=== PATIENT | female | born 1935 | race Caucasian/White ===

== ENCOUNTER → 2020-11-02 | Outpatient (CLI) | payer MEDICARE, BC | END | disposition home or self-care (01) | LOC: LABWHC1 14:05 | PROVIDERS: ATTEND Family Medicine | DX: U07.1 COVID-19 (principal) | CPT/HCPCS: 87502; U0003; U0005 ==

== ENCOUNTER 2021-04-24 10:01 | Observation (INO) | payer MEDICARE, BC ==
[2021-04-24] MEDS ORDERED: SODIUM CHLORIDE 0.9% 500 ML 500 ML IV STA (10:07)
--- NOTE | 2021-04-24 10:14 | ED ---
General Adult HPI - General Stated complaint: possible stemi Source: patient, RN notes reviewed, old records reviewed - History of Present Illness Initial comments: 85-year-old female presenting with chief complaint of lower abdominal pain and diarrhea. Paramedics had been contacted and the patient did have a syncopal episode possibly up to 3 separate episodes where she momentarily loss consciousness. She was transported as a priority 1 with EKG changes. She was noted to have a left bundle branch block and is unable to state if she has a history of left bundle branch block. She has no previous known history of coronary artery disease, denies current chest pain. She has lower abdominal pain and his had multiple episodes of diarrhea over the past 24 hours. She's had nausea without vomiting. - Related Data Home Medications Medication Instructions Recorded Confirmed Furosemide [Lasix] 20 mg PO DAILY PRN 04/24/21 04/24/21 Levothyroxine Sodium [Synthroid] 75 mcg PO DAILY 04/24/21 04/24/21 Losartan Potassium 100 mg PO DAILY 04/24/21 04/24/21 Lutein 10 mg PO DAILY 04/24/21 04/24/21 Metoprolol Succinate [Toprol XL] 25 mg PO DAILY 04/24/21 04/24/21 Pantoprazole [Protonix] 40 mg PO DAILY 04/24/21 04/24/21 Propylene Glycol/Peg 400/Pf 1 drop BOTH EYES BID 04/24/21 04/24/21 [Systane 0.3-0.4% Eye Drop] metFORMIN HCL 500 mg PO BID 04/24/21 04/24/21 Allergies Allergy/AdvReac Type Severity Reaction Status Date / Time Sulfa (Sulfonamide Allergy Unknown Verified 04/24/21 13:30 Antibiotics) Review of Systems ROS Statement: Those systems with pertinent positive or pertinent negative responses have been documented in the HPI. ROS Other: All systems not noted in ROS Statement are negative. General Exam General appearance: alert, in no apparent distress Head exam: Present: atraumatic, normocephalic Eye exam: Present: normal appearance, PERRL ENT exam: Present: mucous membranes dry Neck exam: Present: normal inspection Respiratory exam: Present: normal lung sounds bilaterally. Absent: respiratory distress, wheezes Cardiovascular Exam: Present: regular rate, normal rhythm GI/Abdominal exam: Present: soft. Absent: distended, tenderness, guarding, rebound Extremities exam: Present: normal inspection, normal capillary refill Neurological exam: Present: alert, oriented X3, CN II-XII intact. Absent: motor sensory deficit Psychiatric exam: Present: normal affect, normal mood Skin exam: Present: warm, dry, intact. Absent: cyanosis, diaphoretic Course Vital Signs 04/24/21 04/24/21 04/24/21 10:03 11:15 12:30 Temperature 98.8 F 98.6 F Pulse Rate 78 68 70 Respiratory 18 16 22 Rate Blood Pressure 168/76 176/86 155/73 O2 Sat by Pulse 96 95 96 Oximetry 04/24/21 04/24/21 13:00 13:30 Temperature Pulse Rate 71 65 Respiratory 22 16 Rate Blood Pressure 155/72 157/65 O2 Sat by Pulse 97 96 Oximetry EKG Findings - EKG Comments: EKG Findings:: EKG: Sinus rhythm, left axis, left bundle branch block rate of 73, CA interval 200, QRS duration 145, QTC 438, does not meet Scarboza criteria Medical Decision Making - Medical Decision Making 85-year-old female presenting with abdominal pain, diarrhea, and multiple syncopal episodes. Upon arrival she is alert and oriented with stable vitals. She has sinus rhythm with left bundle branch block. No old for comparison. There is no active chest pain. She has been having diarrhea and lower abdominal pain for the past 24 hours. Workup is initiated. She has a normal CBC no leukocytosis, stable hemoglobin, all to the normal CMP. Urinalysis is pending. CT of the abdomen does show a uncomplicated diverticulitis. Chest x-ray is unremarkable. She will be admitted for IV hydration, IV antibiotics, and monitoring. I suspect his syncope was related to volume loss from diarrhea. Case discussed with Dr. Bhatt who will admit. - Lab Data Result diagrams: 04/24/21 10:03 04/24/21 10:03 Lab Results 04/24/21 04/24/21 04/24/21 Range/Units 10:03 10:03 10:03 WBC 5.6 (3.8-10.6) k/uL RBC 5.05 (3.80-5.40) m/uL Hgb 13.3 (11.4-16.0) gm/dL Hct 41.6 (34.0-46.0) % MCV 82.4 (80.0-100.0) fL MCH 26.4 (25.0-35.0) pg MCHC 32.0 (31.0-37.0) g/dL RDW 13.8 (11.5-15.5) % Plt Count 204 (150-450) k/uL MPV 8.5 Neutrophils % 60 % Lymphocytes % 24 % Monocytes % 9 % Eosinophils % 4 % Basophils % 1 % Neutrophils # 3.4 (1.3-7.7) k/uL Lymphocytes # 1.3 (1.0-4.8) k/uL Monocytes # 0.5 (0-1.0) k/uL Eosinophils # 0.2 (0-0.7) k/uL Basophils # 0.1 (0-0.2) k/uL PT 10.9 (9.0-12.0) sec INR 1.0 (<1.2) APTT 22.4 (22.0-30.0) sec Sodium 135 L (137-145) mmol/L Potassium 4.3 (3.5-5.1) mmol/L Chloride 107 (98-107) mmol/L Carbon Dioxide 19 L (22-30) mmol/L Anion Gap 9 mmol/L BUN 18 H (7-17) mg/dL Creatinine 1.03 (0.52-1.04) mg/dL Est GFR (CKD-EPI)AfAm 58 (>60 ml/min/1.73 sqM) Est GFR (CKD-EPI)NonAf 50 (>60 ml/min/1.73 sqM) Glucose 162 H (74-99) mg/dL Calcium 9.3 (8.4-10.2) mg/dL Magnesium 1.4 L (1.6-2.3) mg/dL Total Bilirubin 0.7 (0.2-1.3) mg/dL AST 28 (14-36) U/L ALT 18 (4-34) U/L Alkaline Phosphatase 54 (38-126) U/L Troponin I (0.000-0.034) ng/mL Total Protein 7.8 (6.3-8.2) g/dL Albumin 4.1 (3.5-5.0) g/dL 04/24/21 Range/Units 10:03 WBC (3.8-10.6) k/uL RBC (3.80-5.40) m/uL Hgb (11.4-16.0) gm/dL Hct (34.0-46.0) % MCV (80.0-100.0) fL MCH (25.0-35.0) pg MCHC (31.0-37.0) g/dL RDW (11.5-15.5) % Plt Count (150-450) k/uL MPV Neutrophils % % Lymphocytes % % Monocytes % % Eosinophils % % Basophils % % Neutrophils # (1.3-7.7) k/uL Lymphocytes # (1.0-4.8) k/uL Monocytes # (0-1.0) k/uL Eosinophils # (0-0.7) k/uL Basophils # (0-0.2) k/uL PT (9.0-12.0) sec INR (<1.2) APTT (22.0-30.0) sec Sodium (137-145) mmol/L Potassium (3.5-5.1) mmol/L Chloride (98-107) mmol/L Carbon Dioxide (22-30) mmol/L Anion Gap mmol/L BUN (7-17) mg/dL Creatinine (0.52-1.04) mg/dL Est GFR (CKD-EPI)AfAm (>60 ml/min/1.73 sqM) Est GFR (CKD-EPI)NonAf (>60 ml/min/1.73 sqM) Glucose (74-99) mg/dL Calcium (8.4-10.2) mg/dL Magnesium (1.6-2.3) mg/dL Total Bilirubin (0.2-1.3) mg/dL AST (14-36) U/L ALT (4-34) U/L Alkaline Phosphatase (38-126) U/L Troponin I <0.012 (0.000-0.034) ng/mL Total Protein (6.3-8.2) g/dL Albumin (3.5-5.0) g/dL Disposition Clinical Impression: Syncope, Diverticulitis, Dehydration Disposition: ADMITTED IP TO THIS [facility] Condition: Stable Is patient prescribed a controlled substance at d/c from ED?: No Referrals: Satinder Caraballo MD [Primary Care Provider] - 1-2 days Decision to Admit Reason: Admit from EC Decision Date: 04/24/21 Decision Time: 14:01
[2021-04-24 10:24] LABS: Basophils # (A) 0.1 k/uL (0-0.2); Basophils % (A) 1 %; Eosinophils # (A) 0.2 k/uL (0-0.7); Eosinophils % (A) 4 %; HCT 41.6 % (34.0-46.0); HGB 13.3 gm/dL (11.4-16.0); Lymphocytes # (A) 1.3 k/uL (1.0-4.8); Lymphocytes % (A) 24 %; MCH 26.4 pg (25.0-35.0); MCV 82.4 fL (80.0-100.0); Mean Platelet Volume 8.5; Monocytes # (A) 0.5 k/uL (0-1.0); Monocytes % (A) 9 %; Neutrophils # (A) 3.4 k/uL (1.3-7.7); Neutrophils % (A) 60 %; Platelet Count 204 k/uL (150-450); RBC 5.05 m/uL (3.80-5.40); RDW 13.8 % (11.5-15.5); WBC 5.6 k/uL (3.8-10.6)
[2021-04-24 10:37] LABS: Partial Thromboplastin Time 22.4 sec (22.0-30.0); Prothrombin Time 10.9 sec (9.0-12.0)
--- NOTE | 2021-04-24 10:39 | XR ---
EXAMINATION TYPE: XR chest 2V DATE OF EXAM: 04/24/2021 COMPARISON: NONE HISTORY: Syncope and diaphoresis. TECHNIQUE: Frontal and lateral views of the chest are obtained. FINDINGS: There is mild chronic parenchymal change without suspicious focal air space opacity, pleur al effusion, or pneumothorax seen. Cardiomegaly is seen. Retrocardiac opacity consistent with modera te to large size hiatal hernia is identified. The osseous structures are demineralized. IMPRESSION: Chronic changes and cardiomegaly without acute pulmonary process.
[2021-04-24 10:40] LABS: Albumin 4.1 g/dL (3.5-5.0); Calcium 9.3 mg/dL (8.4-10.2); Magnesium 1.4 mg/dL (1.6-2.3); Potassium 4.3 mmol/L (3.5-5.1); Total Bilirubin 0.7 mg/dL (0.2-1.3); Total Protein 7.8 g/dL (6.3-8.2)
[2021-04-24] MEDS ORDERED: MORPHINE SULFATE 4 MG/ML SYRINGE IVP STA (10:44)
[2021-04-24] MEDS ORDERED: MAGNESIUM SULFATE-D5W PMX 1 GM in DEXTROSE/WATER 1 100ML.BAG IVPB ONE (10:44)
--- NOTE | 2021-04-24 10:52 | XR ---
EXAMINATION TYPE: XR KUB DATE OF EXAM: 04/24/2021 10:41 AM CLINICAL HISTORY: Abdominal pain. TECHNIQUE: Two supine KUB images of the abdomen are obtained. COMPARISON: None. FINDINGS: Scattered gas is seen in non-distended small and large bowel loops. Cholecystectomy clips a re present. A large approximately 2.3 cm calcification right pelvis could reflect calcified fibroid o r intraluminal bladder calculus. Retrocardiac opacity consistent with hiatal hernia seen better on re cent chest x-ray. Moderate axial joint space loss both hips. IMPRESSION: Overall nonspecific strongly favor nonobstructive bowel gas pattern.
--- NOTE | 2021-04-24 12:07 | CT ---
EXAMINATION TYPE: CT abdomen pelvis w con DATE OF EXAM: 04/24/2021 HISTORY: Pelvic cramping CT DLP: 1065.4mGycm Automated Exposure Control for Dose Reduction was Utilized. CONTRAST: CT scan of the abdomen and pelvis is performed without oral but with IV Contrast, patient injected wi th 100 mL of Isovue 300. COMPARISON: Same day abdominal x-ray. FINDINGS: LUNG BASES: Dependent atelectasis left lung base. LIVER/GB: Cholecystectomy clips are redemonstrated. PANCREAS: No significant abnormality is seen. SPLEEN: No significant abnormality is seen. ADRENALS: No significant abnormality is seen. KIDNEYS: Symmetric cortical medullary uptake and excretion without hydronephrosis seen bilaterally. N o intraluminal calculus in the bladder. BOWEL: Suboptimal evaluation of bowel without enteric contrast. No suspicious small or large bowel di latation. There is large size hiatal hernia or intrathoracic stomach with twisting. No suspicious sma ll or large bowel dilatation. Diverticula throughout the colon greatest involving the sigmoid colon. Perhaps mild adjacent fat stranding in the pelvis. No well-formed fluid collection or abscess. No marisela e air. UTERUS/ADNEXA: Anteverted uterus projects just right of midline. Uterus small in size correlating wit h patient's postmenopausal age. Scattered adjacent calcified pelvic phleboliths including dominant 2 cm calcified phlebolith on the right side axial image 66 corresponds to x-ray abnormality. LYMPH NODES: No greater than 1cm abdominal or pelvic lymph nodes are appreciated. OSSEOUS STRUCTURES: Moderate to severe disc space narrowing with vacuum disc phenomenon at lumbosacra l junction. OTHER: No significant additional abnormality is seen. IMPRESSION: Prominent sigmoid colonic diverticulosis with suggestion of mild uncomplicated acute dive rticulitis at this level.
[2021-04-24] MEDS ORDERED: LEVOFLOXACIN 500MG-D5W PMX 500 MG in DEXTROSE/WATER 1 100ML.BAG IVPB STA (13:58)
[2021-04-24] MEDS ORDERED: MORPHINE SULFATE 4 MG/ML SYRINGE IV PRN (13:58)
[2021-04-24] MEDS ORDERED: metroNIDAZOLE-NS PMX 500 MG in SALINE 1 100ML.BAG IVPB STA (13:58)
[2021-04-24] MEDS ORDERED: NALOXONE 0.4 MG/ML 1 ML VIAL IV PRN (13:58)
[2021-04-24 16:00] LABS: Appearance,Urine Clear (Clear); Bilirubin,Urine Negative (Negative); Blood,Urine Negative (Negative); Color,Urine Light Yellow; Glucose,Urine (UA) Negative (Negative); Hyaline Casts,Urine 1 /lpf (0-2); Ketones,Urine Negative (Negative); Leukocyte Esterase,Urine Small (Negative); Mucus,Urine Rare /hpf; Nitrite,Urine Negative (Negative); Protein,Urine Negative (Negative); RBC,Urine <1 /hpf (0-5); Squamous Epithelial Cell,Urine 1 /hpf (0-4); Urobilinogen,Urine <2.0 mg/dL (<2.0); WBC,Urine 1 /hpf (0-5)
[2021-04-24] MEDS: SODIUM CHLORIDE 0.9% 1,000 ML IV SCH (18:52)
[2021-04-24] MEDS: HEPARIN SODIUM,PORCINE/PF 5,000 UNIT/0.5 ML SYRINGE SQ SCH ×2 (19:03→19:57)
[2021-04-24] MEDS: ARTIFICIAL TEARS-HYPROMELLOSE DROPS 15 ML BTL BOTH EYES SCH (19:56)
--- NOTE | 2021-04-24 23:11 | P.HPIM ---
History of Present Illness H&P Date: 04/24/21 Chief Complaint: Abdominal pain Patient is a 85-year-old female with a known history of hypertension, diabetes type 2 [id number], hypothyroidism and history of cholecystectomy presents to ER with complaints of abdominal pain and diarrhea. Patient states that she had about 5 episodes of diarrhea since morning and just came out of the bathroom and suddenly felt lower abdominal pain and leaning onto the couch. Patient states that she lost consciousness for about half a minute and was able to get up and call family and EMS was called and patient was brought to the hospital. Patient did have another syncopal episode and EMS put her on the stretcher for about few seconds. Denies any complaints of chest pain or shortness of breath. No recent illnesses. No fever no chills. No cough or sputum production. No leg swelling. No palpitations. EKG on admission showed sinus rhythm with left axis deviation. Left bundle branch block. Chest x-ray showed chronic changes and cardiomegaly without acute pulmonary process. KUB x-ray showed overall nonspecific strongly favored nonobstructive bowel gas pattern. CT of the abdomen pelvis was done in the ER showed prominent sigmoid colonic diverticulosis with suggestion of mild uncomplicated acute diverticulitis at this level. Laboratory data showed sodium 135 potassium 4.3 chloride 107 bicarb is 19 BUN 18 and creatinine 1.03 and blood sugar 162 magnesium 1.4 and urinalysis is negative for infection. WBC 5.6 hemoglobin 13.3 and platelets 204 Patient has been afebrile and blood pressure elevated on admission 168/76 and saturating 96% on room air. Review of Systems Constitutional: Patient denies any fever or chills . No generalized weakness or weight loss. Abdomen: Patient denied nausea vomiting . +diarrhea and abdominal pain. Cardiovascular: Patient denies any chest pain or short of breath no palpitations. Respiratory: patient denied any cough or sputum production. No shortness of breath Neurologic: Patient denied any numbness or tingling headache. Musculoskeletal: Patient denies any complaints of joint swelling or deformity. Skin: Negative Psychiatric: Negative Endocrine: No heat or cold intolerance. No recent weight gain. Genitourinary: No dysuria or hematuria. All other 14 point ROS negative except the above Past Medical History Past Medical History: Diabetes Mellitus, GERD/Reflux, Hypertension, Thyroid Disorder History of Any Multi-Drug Resistant Organisms: None Reported Past Surgical History: Cholecystectomy Past Psychological History: No Psychological Hx Reported Smoking Status: Never smoker Past Alcohol Use History: None Reported Past Drug Use History: None Reported Medications and Allergies Home Medications Medication Instructions Recorded Confirmed Type Furosemide [Lasix] 20 mg PO DAILY PRN 04/24/21 04/24/21 History Levothyroxine Sodium [Synthroid] 75 mcg PO DAILY 04/24/21 04/24/21 History Losartan Potassium 100 mg PO DAILY 04/24/21 04/24/21 History Lutein 10 mg PO DAILY 04/24/21 04/24/21 History Metoprolol Succinate [Toprol XL] 25 mg PO DAILY 04/24/21 04/24/21 History Pantoprazole [Protonix] 40 mg PO DAILY 04/24/21 04/24/21 History Propylene Glycol/Peg 400/Pf 1 drop BOTH EYES BID 04/24/21 04/24/21 History [Systane 0.3-0.4% Eye Drop] metFORMIN HCL 500 mg PO BID 04/24/21 04/24/21 History Allergies Allergy/AdvReac Type Severity Reaction Status Date / Time Sulfa (Sulfonamide Allergy Unknown Verified 04/24/21 13:30 Antibiotics) Physical Exam Vitals: Vital Signs Temp Pulse Resp BP Pulse Ox 04/24/21 13:30 65 16 157/65 96 04/24/21 13:00 71 22 155/72 97 04/24/21 12:30 70 22 155/73 96 04/24/21 11:15 98.6 F 68 16 176/86 95 04/24/21 10:03 98.8 F 78 18 168/76 96 Intake and Output 04/24/21 04/24/21 04/24/21 06:59 14:59 22:59 Other: Weight 87.543 kg PHYSICAL EXAMINATION: Patient is lying in the bed comfortably, no acute distress, awake alert and oriented.. HEENT: Normocephalic. Neck is supple. Pupils reactive. Nostrils clear. Oral cavity is moist. Neck reveals no JVD, carotid bruits, or thyromegaly. CHEST EXAMINATION: Trachea is central. Symmetrical expansion. Lung loza clear to auscultation and percussion. CARDIAC: Normal S1, S2 with no gallops. No murmurs ABDOMEN: Soft. Bowel sounds normal. No organomegaly. No abdominal bruits. Extremities: reveal no edema. No clubbing or cyanosis Neurologically awake, alert, oriented x3 with well-coordinated movements. No focal deficits noted Skin: No rash or skin lesions. Psychiatric: Cooperative. Nonsuicidal Musculoskeletal: No joint swelling or deformity. Normal range of motion. Results CBC & Chem 7: 04/24/21 10:03 04/24/21 10:03 Labs: Abnormal Lab Results - Last 24 Hours (Table) 04/24/21 Range/Units 10:03 Sodium 135 L (137-145) mmol/L Carbon Dioxide 19 L (22-30) mmol/L BUN 18 H (7-17) mg/dL Glucose 162 H (74-99) mg/dL Magnesium 1.4 L (1.6-2.3) mg/dL Thrombosis Risk Factor Assmnt - DVT/VTE Prophylaxis DVT/VTE Prophylaxis: Pharmacologic Prophylaxis ordered Assessment and Plan Assessment: Acute mild sigmoid diverticulitis Syncopal episode x3 likely due to diarrhea and pain. Rule out arrhythmia. Hypertension Hypothyroidism GERD Diabetes type 2 [id number] DVT prophylaxis Heparin subcu Plan: Patient be continued on IV hydration with normal saline and antibiotics above Levaquin and Flagyl. Continue with telemetry monitoring. Due to cardiomegaly and syncopal episode, cardiology will be consulted for evaluation. Currently patient denies any complaints of abdominal pain. Continue to follow closely. Follow-up CBC and BMP tomorrow. Time with Patient: Greater than 30
[2021-04-25] MEDS: SODIUM CHLORIDE 0.9% 1,000 ML IV SCH (05:36)
[2021-04-25] MEDS ORDERED: LEVOTHYROXINE 75 MCG TAB PO SCH (06:30)
[2021-04-25] MEDS ORDERED: PANTOPRAZOLE 40 MG TABLET PO SCH (07:30)
[2021-04-25] MEDS ORDERED: METOPROLOL SUCCINATE (ER) 25 MG TAB.ER.24H PO SCH (09:00)
[2021-04-25] MEDS ORDERED: LOSARTAN 50 MG TAB PO SCH (09:00)
[2021-04-25] MEDS: HEPARIN SODIUM,PORCINE/PF 5,000 UNIT/0.5 ML SYRINGE SQ SCH (09:36)
[2021-04-25] MEDS: ARTIFICIAL TEARS-HYPROMELLOSE DROPS 15 ML BTL BOTH EYES SCH (09:37)
--- NOTE | 2021-04-25 12:04 | US ---
EXAMINATION TYPE: US carotid duplex BILAT DATE OF EXAM: 04/25/2021 COMPARISON: NONE CLINICAL HISTORY: syncope. syncope EXAM MEASUREMENTS: RIGHT: Peak Systolic Velocity (PSV) cm/sec ----- Right CCA: 75.2 ----- Right ICA: 99.3 ----- Right ECA: 110 ICA/CCA ratio: 1.32 RIGHT: End Diastole cm/sec ----- Right CCA: 16.1 ----- Right ICA: 22.4 ----- Right ECA: 0.0 LEFT: Peak Systolic Velocity (PSV) cm/sec ----- Left CCA: 62.0 ----- Left ICA: 82.1 ----- Left ECA: 98.1 ICA/CCA ratio: 1.24 LEFT: End Diastole cm/sec ----- Left CCA: 14.9 ----- Left ICA: 18.9 ----- Left ECA: 12.1 VERTEBRALS (direction of flow): Right Vertebral: Antegrade Left Vertebral: Antegrade Rhythm: Normal Mild plaque bilateral bifurcations. no evidence of increased velocities IMPRESSION: No hemodynamically significant stenosis in either internal carotid artery. Criteria for Assigning % of Stenosis / Diameter reduction (Estimation based on the indirect measurements of the internal carotid artery velocities (ICA PSV). 1. Normal (no stenosis)=ICA PSV < 125 cm/s: ratio < 2.0: ICA EDV<40 cm/s. 2. Less than 50% stenosis=ICA PSV < 125 cm/s: ratio < 2.0: ICA EDV<40 cm/s. 3. 50 to 69% stenosis=ICA PSV of 125 to 230 cm/s: ration 2.0 ? 4.0: ICA EDV 40-100 cm/s. 4. Greater than 70% stenosis to near occlusion= ICA PSV > 230 cm/s: ratio > 4.0: ICA EDV > 100 cm/s. 5. Near occlusion= ICA PSV velocities may be low or undetectable: variable ratio and ICA EDV. 6. Total occlusion=unable to detect flow.
[2021-04-25 12:38] LABS: Basophils # (A) 0.06 X 10*3/uL (0.00-0.10); Basophils % (A) 1.1 %; Eosinophils % (A) 3.8 %; HCT 38.4 % (37.2-46.3); HGB 11.9 g/dL (12.0-15.0); Immature Grans, Automated 0.2 %; Lymphocytes # (A) 1.36 X 10*3/uL (0.90-5.00); MCH 25.7 pg (27.0-32.0); MCV 82.9 fL (80.0-97.0); Mean Platelet Volume 11.8 fL (9.5-12.2); Monocytes # (A) 0.65 X 10*3/uL (0.20-1.00); Monocytes % (A) 12.4 %; NRBC Per 100 WBC 0 /100 WBCS (0.0-0.0); Neutrophils # (A) 2.96 X 10*3/uL (1.80-7.70); Neutrophils % (A) 56.5 %; Platelet Count 189 X 10*3/uL (140-440); RBC 4.63 X 10*6/uL (4.10-5.20); RDW 14.1 % (11.5-14.5); WBC 5.24 X 10*3/uL (4.50-10.00)
[2021-04-25 12:45] LABS: African American GFR (CKD) 57.1 (60.0-200.0); Anion Gap 11.5 mmol/L (10.00-18.00); BUN/Creat Ratio 17.21 Ratio (12.00-20.00); Blood Urea Nitrogen 17.9 mg/dL (9.0-27.0); Calcium 9.1 mg/dL (8.7-10.3); Carbon Dioxide 21.5 mmol/L (20.0-27.5); Non-African American GFR(CKD) 49.3 (60.0-200.0); Potassium 4.6 mmol/L (3.5-5.5)
[2021-04-25 13:49] VITALS: BP 168/75; PULSE 71; RESP 19; TEMP 98.5
--- NOTE | 2021-04-25 15:16 | P.CRDCN ---
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 Patient gives history of having 3 syncopal episodes. She states she was having nausea without vomiting and diarrhea sudden onset and frequent with liquid stools. She left the bathroom and started walking towards her couch which was not very far away and she started passing out but landed on the couch. She thinks she had loss of consciousness for about 10 seconds. She then went downstairs and was using a public restroom with diarrhea she saw the fire truck there at the facility and thought they were there to see her. She stopped them and she started feeling faint and going to pass out and they were able to catch her and this was her second episode. S ubsequently she had one more episode while she was on the stretcher with EMS that lasted 4-5 seconds. In 2019, patient had similar episodes when she had vomiting and diarrhea when she was traveling with a mandaeism group and ended up in the emergency center, diagnosed with what sounds like viral gastroenteritis and was discharged with no further problems. Patient states she had lightheadedness prior to each episode and had cold sweat. No chest pain or shortness of breath. Daughter also brings up that the patient received a fish dinner from [employer] on [address] on Monday but did not eat on until Monday and thinks this may be the culprit to the nausea and diarrhea. Initial blood pressure 176/86 this morning, 159/72 EKG is sinus rhythm with left axis deviation, left bundle branch block Hemoglobin 11.9 otherwise CBC is unremarkable. Electrolytes and renal function normal. Blood sugar 138. Urinalysis negative for infection. Troponin negative on one drop. Albumin 4.1. Magnesium 1.4 this was replaced with 1 g magnesium IV piggyback. CAT scan of the abdomen and pelvis with contrast revealed sigmoid colonic diverticulosis with suggestion of mild uncomplicated acute diverticulitis. Chest x-ray reveals chronic changes and cardiomegaly without acute pulmonary process. KUB shows overall nonspecific nonobstructive bowel gas pattern. Carotid ultrasound negative for hemodynamically significant stenosis. REVIEW OF SYSTEMS Constitutional: No fever, no chills. No weakness, fatigue or lethargy. EENT: No headache. No dizziness. Lungs: No shortness of breath, cough, no sputum production. No wheezing. Cardiovascular: No chest pain, chronic lower extremity edema. No palpitations. No paroxysmal nocturnal dyspnea. No orthopnea. No lightheadedness or dizziness. Reports 3 syncopal episodes. Abdominal: No abdominal pain. No nausea-resolved, vomiting. No diarrhea- resolved. No constipation. No bloody or tarry stools.. No loss of appetite. Genitourinary: No dysuria.. No urinary retention. Musculoskeletal: No myalgias. No muscle weakness, no gait dysfunction, no frequent falls. No back pain. No neck pain. Integumentary: No wounds, no lesions. No rash or pruritus. No unusual bruising. Neurologic: No aphasia. No facial droop. No change in mentation. No head injury. No headache. No paralysis. No paresthesia. Psychiatric: No depression. No anxiety. Endocrine: Noted mildly abnormal blood sugars. PHYSICAL EXAMINATION Gen: This is an 85-year-old female. She is resting in bed and appears to be comfortable in no acute distress. Patient's daughter is at bedside VS: Afebrile heart rate 70s, blood pressure 160/75, pulse ox 96% on room air. HEENT: Head is atraumatic, normocephalic. Pupils equal, round. Sclerae is anicteric. NECK: Supple. No JVD. No lymphadenopathy. No thyromegaly. LUNGS: Clear to auscultation. No wheezes or rhonchi. No intercostal retractions. HEART: Regular rate and rhythm. No murmur. ABDOMEN: Soft. Bowel sounds are present. No masses. No tenderness. EXTREMITIES: Trace bilateral pedal edema. No calf tenderness. Dorsalis pedis +2 bilaterally. NEUROLOGICAL: Patient is awake, alert and oriented x3. Cranial nerves 2 through 12 are grossly intact. ASSESSMENT Nausea and diarrhea possible gastroenteritis Syncopal episode most likely secondary to dehydration and vasovagal response Hypertension Diabetes mellitus type 2 Hypothyroidism Gastroesophageal reflux disease PLAN Obtain orthostatic vital signs Obtain 2-D echocardiogram and Doppler study to assess cardiac structure and function hospital monitor shows no sign of arrhythmias. Patient may require outpatient cardiac monitoring Further recommendations to follow based upon clinical course Thank you kindly for this consultation. Nurse practitioner note has been reviewed, I agree with documented findings and plan of care. Patient was seen and examined. Past Medical History Past Medical History: Diabetes Mellitus, GERD/Reflux, Hypertension, Thyroid Disorder History of Any Multi-Drug Resistant Organisms: None Reported Past Surgical History: Cholecystectomy Past Psychological History: No Psychological Hx Reported Smoking Status: Never smoker Past Alcohol Use History: None Reported Past Drug Use History: None Reported Medications and Allergies Home Medications Medication Instructions Recorded Confirmed Type Furosemide [Lasix] 20 mg PO DAILY PRN 04/24/21 04/24/21 History Levothyroxine Sodium [Synthroid] 75 mcg PO DAILY 04/24/21 04/24/21 History Losartan Potassium 100 mg PO DAILY 04/24/21 04/24/21 History Lutein 10 mg PO DAILY 04/24/21 04/24/21 History Metoprolol Succinate [Toprol XL] 25 mg PO DAILY 04/24/21 04/24/21 History Pantoprazole [Protonix] 40 mg PO DAILY 04/24/21 04/24/21 History Propylene Glycol/Peg 400/Pf 1 drop BOTH EYES BID 04/24/21 04/24/21 History [Systane 0.3-0.4% Eye Drop] metFORMIN HCL 500 mg PO BID 04/24/21 04/24/21 History Allergies Allergy/AdvReac Type Severity Reaction Status Date / Time Sulfa (Sulfonamide Allergy Unknown Verified 04/24/21 13:30 Antibiotics) Physical Exam Vitals: Vital Signs Temp Pulse Pulse Pulse Resp BP BP 04/25/21 07:00 98.3 F 69 18 04/25/21 02:49 97.7 F 64 18 04/24/21 20:00 74 18 04/24/21 19:53 97.9 F 75 18 04/24/21 15:45 97.6 F 75 18 148/78 04/24/21 15:40 98.4 F 67 18 144/65 04/24/21 13:30 65 16 157/65 04/24/21 13:00 71 22 155/72 04/24/21 12:30 70 22 155/73 04/24/21 11:15 98.6 F 68 16 176/86 BP Pulse Ox 04/25/21 07:00 159/72 97 04/25/21 02:49 153/64 96 04/24/21 20:00 04/24/21 19:53 128/65 95 04/24/21 15:45 96 03/19/22 15:40 98 04/24/21 13:30 96 04/24/21 13:00 97 04/24/21 12:30 96 04/24/21 11:15 95 Intake and Output 04/24/21 04/25/21 04/25/21 22:59 06:59 14:59 Intake Total 118 118 Balance 118 118 Intake: Oral 118 118 Other: Voiding Method Toilet # Voids 2 Weight 87.543 kg Results 04/25/21 05:57 04/25/21 05:57 Cardiac Enzymes 04/24/21 04/24/21 Range/Units 10:03 10:03 AST 28 (14-36) U/L Troponin I <0.012 (0.000-0.034) ng/mL Coagulation 04/24/21 Range/Units 10:03 PT 10.9 (9.0-12.0) sec APTT 22.4 (22.0-30.0) sec CBC 04/24/21 Range/Units 10:03 WBC 5.6 (3.8-10.6) k/uL RBC 5.05 (3.80-5.40) m/uL Hgb 13.3 (11.4-16.0) gm/dL Hct 41.6 (34.0-46.0) % Plt Count 204 (150-450) k/uL Comprehensive Metabolic Panel 04/24/21 Range/Units 10:03 Sodium 135 L (137-145) mmol/L Potassium 4.3 (3.5-5.1) mmol/L Chloride 107 (98-107) mmol/L Carbon Dioxide 19 L (22-30) mmol/L BUN 18 H (7-17) mg/dL Creatinine 1.03 (0.52-1.04) mg/dL Glucose 162 H (74-99) mg/dL Calcium 9.3 (8.4-10.2) mg/dL AST 28 (14-36) U/L ALT 18 (4-34) U/L Alkaline Phosphatase 54 (38-126) U/L Total Protein 7.8 (6.3-8.2) g/dL Albumin 4.1 (3.5-5.0) g/dL Current Medications Generic Name Dose Route Start Last Admin Trade Name Freq PRN Reason Stop Dose Admin Artificial Tears 1 drops 04/24/21 21:00 04/25/21 09:37 Artificial Tears-Hypromellose Drops 15 Ml Btl BOTH EYES 1 drops BID JAE Administration Heparin Sodium (Porcine) 5,000 unit 04/24/21 16:00 04/25/21 09:36 Heparin Sodium,Porcine/Pf 5,000 Unit/0.5 Ml Syringe SQ 5,000 unit Q8HR JAE Administration Sodium Chloride 1,000 mls @ 75 mls/hr 04/24/21 14:00 04/25/21 05:36 Saline 0.9% IV 75 mls/hr .[id number] JAE Administration Levothyroxine Sodium 75 mcg 04/25/21 06:30 04/25/21 05:35 Levothyroxine 75 Mcg Tab PO 75 mcg DAILY@0630 JAE Administration Losartan Potassium 100 mg 04/25/21 09:00 04/25/21 09:37 Losartan 50 Mg Tab PO 100 mg DAILY JAE Administration Metoprolol Succinate 25 mg 04/25/21 09:00 04/25/21 09:37 Metoprolol Succinate (Er) 25 Mg Tab.Er.24h PO 25 mg DAILY JAE Administration Morphine Sulfate 4 mg 04/24/21 13:58 Morphine Sulfate 4 Mg/Ml Syringe IV Q4HR PRN Severe Pain Naloxone HCl 0.2 mg 04/24/21 13:58 Naloxone 0.4 Mg/Ml 1 Ml Vial IV Q2M PRN Opioid Reversal Pantoprazole Sodium 40 mg 04/25/21 07:30 04/25/21 09:37 Pantoprazole 40 Mg Tablet PO 40 mg DAILY@0730 JAE Administration Intake and Output 04/24/21 04/25/21 04/25/21 22:59 06:59 14:59 Intake Total 118 118 Balance 118 118 Intake: Oral 118 118 Other: Voiding Method Toilet # Voids 2 Weight 87.543 kg 04/24/21 10:03 04/24/21 10:03
== END 2021-04-25 15:44 | disposition home or self-care (01) ==
LOC: EC 10:01 → 6NMEDSUR 13:58
PROVIDERS: ADMIT Internal Medicine; ATTEND Internal Medicine
DX: K57.32 Diverticulitis of large intestine without perforation or abscess without bleeding (principal); R55 Syncope and collapse; I11.9 Hypertensive heart disease without heart failure; E03.9 Hypothyroidism, unspecified; K21.9 Gastro-esophageal reflux disease without esophagitis; E11.9 Type 2 diabetes mellitus without complications; E86.0 Dehydration; I44.7 Left bundle-branch block, unspecified; Z79.890 Hormone replacement therapy; Z79.899 Other long term (current) drug therapy; Z79.84 Long term (current) use of oral hypoglycemic drugs; Z88.2 Allergy status to sulfonamides; Z90.49 Acquired absence of other specified parts of digestive tract
CPT/HCPCS: 96367 ×2; 96372; 96365; 96375; 99285; 36415; 93005; 80053; 80048; 83735; 84484; 85025 ×2; 85610; 85730; 81001; 71046; 74018; 93880; 74177; G0378 ×2; J2270; J1956; J3475; Q9967; J1644

== ENCOUNTER → 2023-05-04 | Outpatient (CLI) | payer MEDICARE, BC ==
--- NOTE | 2023-05-09 19:29 | XR ---
EXAMINATION TYPE: XR Hip Bilateral and AP pelvis DATE OF EXAM: 05/04/2023 1:07 PM CLINICAL INDICATION:Female, 87 years old with history of M54.41 Lumbago with sciatica; [facility] COMPARISON: None. TECHNIQUE: XR Hip Bilateral and AP pelvis; hip was examined in the frontal and lateral projections an d a AP pelvis. FINDINGS: No evidence for acute process, joint dislocation or significant soft tissue swelling. Mini mal to mild degenerative hip disease. IMPRESSION: No acute process.
--- NOTE | 2023-05-09 19:33 | XR ---
EXAMINATION TYPE: XR lumbosacral spine min 4V DATE OF EXAM: 05/04/2023 1:07 PM CLINICAL INDICATION:Female, 87 years old with history of M54.41 Lumbago with sciatica; [facility] COMPARISON: 10/19/2015 TECHNIQUE: XR lumbosacral spine min 4V - Frontal, lateral , bilateral oblique and coned in L5-S1 late ral views of the spine. FINDINGS: There is a grade 1 degenerative listhesis of L4 and L5. Vertebral body height and alignment otherwise maintained. There is significant degenerative disc disease and a vacuum phenomena present at L5-S1. The pedicles are intact. Note is made of a previous cholecystectomy. IMPRESSION: 1. No acute osseous lesion. 2. Degenerative change. No significant change since prior ex am of October 2015.
== END | disposition home or self-care (01) ==
LOC: RADXRMAIN 12:38
PROVIDERS: ATTEND Family Medicine
DX: M47.817 Spondylosis without myelopathy or radiculopathy, lumbosacral region (principal); M16.9 Osteoarthritis of hip, unspecified
CPT/HCPCS: 72110; 73521

== ENCOUNTER → 2023-08-03 | Outpatient (CLI) | payer MEDICARE, BC ==
--- NOTE | 2023-08-03 14:37 | US ---
EXAMINATION TYPE: US venous doppler duplex LE BI DATE OF EXAM: 08/03/2023 2:23 PM COMPARISON: NONE CLINICAL INDICATION: Female, 87 years old with history of R60.0 LOCALIZED EDEMA; bilat leg swelling x 3 weeks. No hx of DVT. Not on blood thinners SIDE PERFORMED: Bilateral TECHNIQUE: The lower extremity deep venous system is examined utilizing real time linear array sonog morgan with graded compression, doppler sonography and color-flow sonography. VESSELS IMAGED: Common Femoral Vein Deep Femoral Vein Greater Saphenous Vein * Femoral Vein Popliteal Vein Small Saphenous Vein * Proximal Calf Veins (* superficial vessels) Right Leg: No evidence for DVT Left Leg: No evidence for DVT IMPRESSION: Grayscale, color doppler, spectral doppler imaging performed of the deep veins of the lo wer extremities. There is normal flow, compressibility, vascular waveforms.
== END | disposition home or self-care (01) ==
LOC: RADUSWWP 13:48
PROVIDERS: ATTEND Family Medicine
DX: R60.0 Localized edema (principal)
CPT/HCPCS: 93970

== ENCOUNTER 2023-08-20 18:48 | Emergency (ER) | payer MEDICARE, BC ==
[2023-08-20 19:02] VITALS: TEMP 97.9
--- NOTE | 2023-08-20 19:57 | ED ---
Dizziness HPI - General Chief Complaint: Dizziness Stated Complaint: High sugar, dizziness Time Seen by Provider: 08/20/23 19:31 Source: patient, family, RN notes reviewed, old records reviewed Mode of arrival: wheelchair Limitations: no limitations - History of Present Illness Initial Comments: This is a 87-year-old female to the ER for evaluation, comes in for not feeling well. Patient has not been feeling well with elevated blood sugar going on mu ltiple days now. No chest pain shortness of breath or abdominal pain. No other complaints patient is just increased anxiety today secondary to a 200 blood sugar at home. Patient is on metformin for diabetes MD Complaint: dizziness, lightheadedness -: week(s) Timing: unsure, intermittent Description: sense of movement History of Same: Yes History of Trauma: Yes Severity: mild Improves With: nothing Worsens With: nothing Associated Symptoms: denies other symptoms - Related Data Home Medications Medication Instructions Recorded Confirmed Furosemide [Lasix] 20 mg PO DAILY PRN 04/24/21 04/24/21 Levothyroxine Sodium [Synthroid] 75 mcg PO DAILY 04/24/21 04/24/21 Losartan Potassium 100 mg PO DAILY 04/24/21 04/24/21 Lutein 10 mg PO DAILY 04/24/21 04/24/21 Metoprolol Succinate [Toprol XL] 25 mg PO DAILY 04/24/21 04/24/21 Pantoprazole [Protonix] 40 mg PO DAILY 04/24/21 04/24/21 Propylene Glycol/Peg 400/Pf 1 drop BOTH EYES BID 04/24/21 04/24/21 [Systane 0.3-0.4% Ophth Dropperette] metFORMIN HCL 500 mg PO BID 04/24/21 04/24/21 Previous Rx's Medication Instructions Recorded metFORMIN HCL [Glucophage] 1,000 mg PO BID #60 tab 08/20/23 Allergies Allergy/AdvReac Type Severity Reaction Status Date / Time Sulfa (Sulfonamide Allergy Unknown Verified 08/20/23 19:01 Antibiotics) Review of Systems ROS Statement: Those systems with pertinent positive or pertinent negative responses have been documented in the HPI. ROS Other: All systems not noted in ROS Statement are negative. Past Medical History Past Medical History: Diabetes Mellitus, GERD/Reflux, Hypertension, Thyroid Disorder History of Any Multi-Drug Resistant Organisms: None Reported Past Surgical History: Cholecystectomy Past Psychological History: No Psychological Hx Reported Smoking Status: Never smoker Past Alcohol Use History: None Reported Past Drug Use History: None Reported General Exam Limitations: no limitations General appearance: alert, in no apparent distress Head exam: Present: atraumatic, normocephalic, normal inspection Eye exam: Present: normal appearance, PERRL, EOMI. Absent: scleral icterus, conjunctival injection, periorbital swelling ENT exam: Present: normal exam, mucous membranes moist Neck exam: Present: normal inspection. Absent: tenderness, meningismus, lymphadenopathy Respiratory exam: Present: normal lung sounds bilaterally. Absent: respiratory distress, wheezes, rales, rhonchi, stridor Cardiovascular Exam: Present: regular rate, normal rhythm, normal heart sounds. Absent: systolic murmur, diastolic murmur, rubs, gallop, clicks GI/Abdominal exam: Present: soft, normal bowel sounds. Absent: distended, tenderness, guarding, rebound, rigid Extremities exam: Present: normal inspection, full ROM, normal capillary refill. Absent: tenderness, pedal edema, joint swelling, calf tenderness Back exam: Present: normal inspection Neurological exam: Present: alert, oriented X3, CN II-XII intact Psychiatric exam: Present: normal affect, normal mood Skin exam: Present: warm, dry, intact, normal color. Absent: rash Course Vital Signs 08/20/23 08/20/23 08/20/23 18:59 21:25 22:40 Temperature 97.9 F 97.9 F Pulse Rate 79 69 71 Respiratory 20 18 20 Rate Blood Pressure 149/80 158/73 156/80 O2 Sat by Pulse 96 96 96 Oximetry - Reevaluation(s) Reevaluation #1: 08/20/23 20:17 Medical records reviewed Reevaluation #2: 08/20/23 20:17 Patient symptoms improved Reevaluation #3: 08/20/23 20:17 Patient informed of results and questions answered Reevaluation #4: Was pt. sent in by a medical professional or institution (, PA, PERFORATOR LOADER, urgent care, hospital, or assisted...) When possible be specific @ -no Did you speak to anyone other than the patient for history (EMS, parent, family, police, friend...)? What history was obtained from this source @ -no Did you review nursing and triage notes (agree or disagree)? Why? @ -agree Are old charts reviewed (outside hosp., previous admission, EMS record, old EKG, old radiological studies, urgent care reports/EKG's, assisted records)? R eport findings @ -yes Differential Diagnosis (chest pain, altered mental status, abdominal pain women, abdominal pain men, vaginal bleeding, weakness, fever, dyspnea, syncope, headache, dizziness, GI bleed, back pain, seizure, CVA, palpatations, mental health, musculoskeletal)? @ -prior EKG interpreted by me (3pts min.). @ -yes X-rays interpreted by me (1pt min.). @ -no CT interpreted by me (1pt min.). @ -no U/S interpreted by me (1pt. min.). @ -no What testing was considered but not performed or refused? (CT, X-rays, U/S, labs)? Why? @ -none What meds were considered but not given or refused? Why? @ -none Did you discuss the management of the patient with other professionals (prof essionals i.e. , PA, PERFORATOR LOADER, lab, RT, psych nurse, health and social care teacher, journeyman patternmaker, teacher, vessel traffic officer, keycase assembler)? Give summary @ -no Was smoking cessation discussed for >3mins.? @ -no Was critical care preformed (if so, how long)? @ -no Were there social determinants of health that impacted care today? How? (Homelessness, low income, unemployed, alcoholism, drug addiction, transportation, low edu. Level, literacy, decrease access to med. care, assisted, rehab)? @ -none Was there de-escalation of care discussed even if they declined (Discuss DNR or withdrawal of care, Hospice)? DNR status @ -no What co-morbidities impacted this encounter? (DM, HTN, Smoking, COPD, CAD, Cancer, CVA, ARF, Chemo, Hep., AIDS, mental health diagnosis, sleep apnea, morbid obesity)? @ -none Was patient admitted / discharged? Hospital course, mention meds given and route, prescriptions, significant lab abnormalities, going to OR and other pertinent info. @ - 87 female with elevated blood sugar at home for some time now concern for increasing blood sugar and some anxiety. Patient has no other acute findings here in the ER feels well can be discharged home Discharge Undiagnosed new problem with uncertain prognosis? @ -no Drug Therapy requiring intensive monitoring for toxicity (Heparin, Nitro, Insulin, Cardizem)? @ -no Were any procedures done? @ -no Diagnosis/symptom? @ -Dizziness Acute, or Chronic, or Acute on Chronic? @ -Acute Uncomplicated (without systemic symptoms) or Complicated (systemic symptoms)? @ -Complicated Side effects of treatment? @ -no Exacerbation, Progression, or Severe Exacerbation? @ -exacerbation Poses a threat to life or bodily function? How? (Chest pain, [place], [place], pneumonia, PE, COPD, DKA, ARF, appy, cholecystitis, CVA, Diverticulitis, Homicidal, Suicidal, threat to staff... and all critical care pts) @ -yes dizziness dizziness Reevaluation #5: 08/20/23 20:17 Differential Dizziness: Benign paroxysmal positional Vertigo, Menieres disease, otitis media, acoustic neuroma, vertebrobasilar insufficiency, cerebellar stroke, encephalitis, hypovolemic, arrhythmia, coronary artery syndrome, anemia, this is not meant to be an all-inclusive list EKG Findings - EKG Comments: EKG Findings:: EKG is sinus 78 [place] 188 QRS 142 QTc 436 - EKG Results: EKG: interpreted by OSWALDO Medical Decision Making - Medical Decision Making 87 female with elevated blood sugar at home for some time now concern for increasing blood sugar and some anxiety. Patient has no other acute findings here in the ER feels well can be discharged home - Lab Data Result diagrams: 08/20/23 20:11 08/20/23 20:11 Lab Results 08/20/23 08/20/23 08/20/23 Range/Units 20:11 20:11 20:11 WBC 7.4 (3.8-10.6) k/uL RBC 4.85 (3.80-5.40) m/uL Hgb 13.1 (11.4-16.0) gm/dL Hct 41.0 (34.0-46.0) % MCV 84.5 (80.0-100.0) fL MCH 27.1 (25.0-35.0) pg MCHC 32.1 (31.0-37.0) g/dL RDW 13.9 (11.5-15.5) % Plt Count 220 (150-450) k/uL MPV 8.7 Neutrophils % 69 % Lymphocytes % 15 % Monocytes % 9 % Eosinophils % 4 % Basophils % 1 % Neutrophils # 5.1 (1.3-7.7) k/uL Lymphocytes # 1.1 (1.0-4.8) k/uL Monocytes # 0.7 (0-1.0) k/uL Eosinophils # 0.3 (0-0.7) k/uL Basophils # 0.1 (0-0.2) k/uL PT 10.3 (10.0-12.5) sec INR 0.9 (<1.2) APTT 23.4 (22.0-30.0) sec Sodium 136 L (137-145) mmol/L Potassium 4.4 (3.5-5.1) mmol/L Chloride 107 (98-107) mmol/L Carbon Dioxide 18 L (22-30) mmol/L Anion Gap 11 mmol/L BUN 31 H (7-17) mg/dL Creatinine 1.02 (0.52-1.04) mg/dL Est GFR (CKD-EPI)AfAm 58 (>60 ml/min/1.73 sqM) Est GFR (CKD-EPI)NonAf 50 (>60 ml/min/1.73 sqM) Glucose 148 H (74-99) mg/dL Plasma Lactic Acid José (0.7-2.0) mmol/L Calcium 9.5 (8.4-10.2) mg/dL Phosphorus 4.0 (2.5-4.5) mg/dL Magnesium 1.3 L (1.6-2.3) mg/dL Total Bilirubin 0.4 (0.2-1.3) mg/dL AST 27 (14-36) U/L ALT 20 (4-34) U/L Alkaline Phosphatase 71 (38-126) U/L Troponin I (0.000-0.034) ng/mL NT-Pro-B Natriuret Pep 246 pg/mL Total Protein 7.1 (6.3-8.2) g/dL Albumin 4.3 (3.5-5.0) g/dL Acetone, Qual Negative (Negative) 08/20/23 08/20/23 Range/Units 20:11 20:11 WBC (3.8-10.6) k/uL RBC (3.80-5.40) m/uL Hgb (11.4-16.0) gm/dL Hct (34.0-46.0) % MCV (80.0-100.0) fL MCH (25.0-35.0) pg MCHC (31.0-37.0) g/dL RDW (11.5-15.5) % Plt Count (150-450) k/uL MPV Neutrophils % % Lymphocytes % % Monocytes % % Eosinophils % % Basophils % % Neutrophils # (1.3-7.7) k/uL Lymphocytes # (1.0-4.8) k/uL Monocytes # (0-1.0) k/uL Eosinophils # (0-0.7) k/uL Basophils # (0-0.2) k/uL PT (10.0-12.5) sec INR (<1.2) APTT (22.0-30.0) sec Sodium (137-145) mmol/L Potassium (3.5-5.1) mmol/L Chloride (98-107) mmol/L Carbon Dioxide (22-30) mmol/L Anion Gap mmol/L BUN (7-17) mg/dL Creatinine (0.52-1.04) mg/dL Est GFR (CKD-EPI)AfAm (>60 ml/min/1.73 sqM) Est GFR (CKD-EPI)NonAf (>60 ml/min/1.73 sqM) Glucose (74-99) mg/dL Plasma Lactic Acid José 2.0 (0.7-2.0) mmol/L Calcium (8.4-10.2) mg/dL Phosphorus (2.5-4.5) mg/dL Magnesium (1.6-2.3) mg/dL Total Bilirubin (0.2-1.3) mg/dL AST (14-36) U/L ALT (4-34) U/L Alkaline Phosphatase (38-126) U/L Troponin I <0.012 (0.000-0.034) ng/mL NT-Pro-B Natriuret Pep pg/mL Total Protein (6.3-8.2) g/dL Albumin (3.5-5.0) g/dL Acetone, Qual (Negative) - EKG Data -: EKG Interpreted by Me Disposition Clinical Impression: Dizziness, Hyperglycemia Disposition: HOME SELF-CARE Condition: Good Instructions (If sedation given, give patient instructions): Dizziness (ED) Prescriptions: metFORMIN HCL [Glucophage] 1,000 mg PO BID #60 tab Is patient prescribed a controlled substance at d/c from ED?: No Referrals: Satinder Caraballo MD [Primary Care Provider] - 1-2 days Time of Disposition: 20:10
[2023-08-20] MEDS: MORPHINE SULFATE 4 MG/ML SYRINGE IV STA (20:05)
[2023-08-20] MEDS: SODIUM CHLORIDE 0.9% 1,000 ML IV STA (20:09)
[2023-08-20] MEDS: SODIUM CHLORIDE 0.9% 500 ML 500 ML IV STA ×2 (20:09→21:24)
[2023-08-20 20:23] LABS: Basophils # (A) 0.1 k/uL (0-0.2); Basophils % (A) 1 %; Eosinophils # (A) 0.3 k/uL (0-0.7); Eosinophils % (A) 4 %; HGB 13.1 gm/dL (11.4-16.0); Lymphocytes # (A) 1.1 k/uL (1.0-4.8); Lymphocytes % (A) 15 %; MCH 27.1 pg (25.0-35.0); MCHC 32.1 g/dL (31.0-37.0); MCV 84.5 fL (80.0-100.0); Mean Platelet Volume 8.7; Monocytes # (A) 0.7 k/uL (0-1.0); Monocytes % (A) 9 %; Neutrophils # (A) 5.1 k/uL (1.3-7.7); Neutrophils % (A) 69 %; Platelet Count 220 k/uL (150-450); RBC 4.85 m/uL (3.80-5.40); RDW 13.9 % (11.5-15.5); WBC 7.4 k/uL (3.8-10.6)
[2023-08-20 20:41] LABS: INR 0.9 (<1.2); Partial Thromboplastin Time 23.4 sec (22.0-30.0); Prothrombin Time 10.3 sec (10.0-12.5)
[2023-08-20 20:51] LABS: NT-Pro-B-Type Natriuretic Pept 246 pg/mL
[2023-08-20 21:04] LABS: ALT 20 U/L (4-34); AST 27 U/L (14-36); African American GFR (CKD) 58 (>60 ml/min/1.73 sqM); Albumin 4.3 g/dL (3.5-5.0); Alkaline Phosphatase 71 U/L (38-126); Anion Gap 11 mmol/L; Blood Urea Nitrogen 31 mg/dL (7-17); Calcium 9.5 mg/dL (8.4-10.2); Carbon Dioxide 18 mmol/L (22-30); Chloride 107 mmol/L (98-107); Glucose 148 mg/dL (74-99); Magnesium 1.3 mg/dL (1.6-2.3); Non-African American GFR(CKD) 50 (>60 ml/min/1.73 sqM); Potassium 4.4 mmol/L (3.5-5.1); Sodium 136 mmol/L (137-145); Total Bilirubin 0.4 mg/dL (0.2-1.3); Total Protein 7.1 g/dL (6.3-8.2)
[2023-08-20] MEDS: MAGNESIUM OXIDE 400 MG TAB PO STA ×2 (21:19)
[2023-08-20] MEDS: metFORMIN 500 MG TAB PO STA (21:19)
[2023-08-20] MEDS: MAGNESIUM SULFATE-D5W PMX 1 GM in DEXTROSE/WATER 1 100ML.BAG IVPB ONE (21:20)
[2023-08-20 22:54] VITALS: BP 156/80; PULSE 71; RESP 20
== END 2023-08-20 22:40 | disposition home or self-care (01) ==
LOC: EC 18:48
DX: E11.65 Type 2 diabetes mellitus with hyperglycemia (principal); R42 Dizziness and giddiness; Z88.2 Allergy status to sulfonamides; Z79.84 Long term (current) use of oral hypoglycemic drugs
CPT/HCPCS: 36415; 93005; 83880; 80053; 82009; 83605; 83735; 84100; 84484; 85025; 85610; 85730; 99284; 96365; 96361; J3475

== ENCOUNTER → 2024-01-17 | Outpatient (CLI) | payer MEDICARE, BC ==
--- NOTE | 2024-01-20 00:10 | BD ---
EXAMINATION TYPE: Axial Bone Density DATE OF EXAM: 01/17/2024 CLINICAL HISTORY: 88 years old Female. ICD-10 CODE: Z78.0 ASYMPTOMATIC MENOPAUSAL STATE , Additional History: Height: Weight: FRAX RISK QUESTIONS: Alcohol (3 or more units per day): No Family History (Parent hip fracture): No Glucocorticoids (More than 3mos): No (Ex: prednisone, prednisolone, methylprednisolone, dexamethasone, and hydrocortisone). History of Fracture in Adulthood: Yes, toe Secondary Osteoporosis: 1. Type 1 Diabetes: No 2. Hyperthyroidism: No 3. Menopause before 45: No 4. Malnutrition: No 5. Chronic liver disease: No Rheumatoid Arthritis: No Current Tobacco Use: No RISK FACTORS HISTORY OF: Hip Fracture (Right/Left): No Spine Fracture: No History of Wrist Fracture: No Surgery to Spine/Hip(right/left)/Wrist (right/left): No MEDICATIONS: Thyroid Medications: Yes Which medication: Synthroid How Lon years Osteoporosis Medications: No EXAM MEASUREMENTS: Bone mineral densitometry was performed using the E [employer] System. Bone mineral density as measured about the Lumbar spine is: ----- L1-L4(G/cm2): 1.091 T Score Values are as follows: ----- L1: -2.4 ----- L2: -2.0 ----- L3: 0.1 ----- L4: 0.6 ----- L1-L4: -0.7 Z Score Values are as follows: ----- L1: -0.9 ----- L2: -0.5 ----- L3: 1.6 ----- L4: 2.1 ----- L1-L4: 0.8 Baseline @MPH Bone mineral density about the R hip (g/cm2): 0.937 Bone mineral density about the L hip (g/cm2): 0.988 T Score values are as follows: -----R Neck: -1.2 -----L Neck: -1.0 -----R Total: -0.6 -----L Total: -0.2 Z Score values are as follows: -----R Neck: 1.0 -----L Neck: 1.2 -----R Total: 1.5 -----L Total: 1.9 Baseline @MPH FRAX%s: The graph provided illustrates a 15.2% chance for a major osteoporotic fx and a 3.5% chance f or the hips probability for fx in 10 years time. IMPRESSION: Osteopenia (T Score between -2.5 and -1). There is slightly increased risk of fracture and the patient may be considered for treatment. Re-Screen 2-5 years. NOTE: T-SCORE=SD OF THE YOUNG ADULT MEAN. [facility], , 01/20/2024 12:08 AM
--- NOTE | 2024-01-22 10:31 | MM ---
Reason for Exam: Screening (asymptomatic). Last mammogram was performed 1 year(s) and 1 month(s) ago. Patient History: Menarche at age 11. First Full-Term at age 20. Postmenopausal. Maternal unspecified had breast cancer. Maternal aunt had breast cancer. Maternal aunt had breast cancer. Mother had breast cancer. Prior Study Comparison: 12/13/2022 Bilateral Screening Mammogram, [facility]. Tissue Density: There are scattered areas of fibroglandular density. Findings: Analyzed By CAD. Right breast: There is no suspicious group of microcalcifications or new suspicious mass. Left breast: There is no suspicious group of microcalcifications or new suspicious mass. Overall Assessment: Negative, BI-RAD 1 Management: Screening Mammogram of both breasts in [address] [facility] will attempt to contact patient to return for supplemental views and ultrasound if indicated. Patient should continue monthly self-breast exams. A clinical breast exam by your physician is recommended on an annual basis. This exam should not preclude additional follow-up of suspicious palpable abnormalities. Note on Isaura scores and lifetime risk: 1. A Isaura score greater than 3% is considered moderate risk. If this is the case, consider specialist referral to assess eligibility for a risk reducing agent. 2. If overall lifetime risk for the development of breast cancer is 20% or higher, the patient may qualify for future screening with alternating mammogram and breast MRI. [facility], , 01/22/2024 10:28 AM. Electronically signed and approved by: Robin Lester DO
== END | disposition home or self-care (01) ==
LOC: RADMAMWWP 11:42
PROVIDERS: ATTEND Family Medicine
DX: Z12.31 Encounter for screening mammogram for malignant neoplasm of breast (principal); Z78.0 Asymptomatic menopausal state; M81.8 Other osteoporosis without current pathological fracture; Z80.3 Family history of malignant neoplasm of breast; R92.323 Mammographic fibroglandular density, bilateral breasts
CPT/HCPCS: 77067; 77080

== ENCOUNTER → 2024-04-02 | Outpatient (CLI) | payer MEDICARE ==
--- NOTE | 2024-04-02 15:40 | XR ---
EXAMINATION TYPE: XR ribs LT w pa chest xray DATE OF EXAM: 04/02/2024 3:34 PM COMPARISON: None. CLINICAL INDICATION: Female, 88 years old with history of S22.41XA MULTIPLE FRACTURES OF RIBS, RIGHT SIDE, I, pain TECHNIQUE: 2 view(s) obtained. Exam supplemented with a frontal chest FINDINGS: Heart size is normal. Moderate-sized hiatal hernia is present. Pulmonary vasculature is normal. No pn eumothorax is evident. No displaced left rib fractures evident. IMPRESSION: 1. No acute place fractures left RIBS [facility], , 04/02/2024 3:38 PM
== END | disposition home or self-care (01) ==
LOC: RADXRMAIN 15:13
PROVIDERS: ATTEND Family Medicine
DX: S22.41XA Multiple fractures of ribs, right side, initial encounter for closed fracture (principal)